=== PATIENT | female | born 1935 | race Caucasian/White ===

== ENCOUNTER 2019-10-12 08:39 | Outpatient (CLI) | payer OTHER, SELFPAY ==
--- NOTE | ~2019-10-12 | CT_ITS ---
EXAMINATION: CT abdomen pelvis wo/w con EXAM DATE: 10/12/2019 10:12 INDICATION: Gross hematuria. TECHNIQUE: Spiral CT of the abdomen and pelvis was performed without contrast. The patient was then injected with small bolus intravenous Omnipaque 350, followed by delay of approximately 10 minutes to allow collecting system to opacify. A post contrast scan abdomen and pelvis was performed during inj ection of remaining contrast. A total of 130 cc intravenous contrast was administered. The dose-alexa th product (DLP) for this examination was 694.51 mGy-cm. The exposure was tailored according to beatrice ent size (auto mA exposure control), and iterative reconstruction (ASIR) was used as additional dose reduction technique. There is no prior study for comparison. FINDINGS: There are left renal peripelvic cysts. There is no hydronephrosis or nephrolithiasis. The kidneys enhance symmetrically. There are no suspicious renal lesions. The calyces and opacified por tions of ureters are unremarkable, without filling defects or focal suspicious strictures. The bladd er is unremarkable. The uterus is not identified and has likely been surgically resected. The liver, spleen, adrenal glands and pancreas are unremarkable. Gallbladder is unremarkable. No bi liary obstruction. There is no retroperitoneal or pelvic lymphadenopathy. 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 The appendix is not positively visualized. There is no pericecal inflammatory change to suggest appe ndicitis. The stomach and small bowel are unremarkable. There is moderate sigmoid colonic diverticu losis. There is no adjacent inflammatory change to suggest diverticulitis. No free intraperitoneal gas. There is cardiomegaly. The lung bases are unremarkable. There are no osteoblastic or osteoly tic lesions identified. IMPRESSION: 1. Left renal peripelvic cysts. No suspicious genitourinary findings. 2. Moderate sigmoid diverticulosis. Reviewed, dictated and finalized at location A.
[2019-10-12 09:38] LABS: Estimated Glomerular Filt Rate > 60
== END 2019-10-12 08:40 | disposition home or self-care (01) ==
LOC: ANHIMG 08:49
PROVIDERS: Visit Provider Urology
DX: R31.0 Gross hematuria (principal); N28.1 Cyst of kidney, acquired; K57.90 Diverticulosis of intestine, part unspecified, without perforation or abscess without bleeding
CPT/HCPCS: 36415; 74178; Q9967

== ENCOUNTER 2020-01-06 12:52 | Outpatient (CLI) | payer OTHER, SELFPAY ==
--- NOTE | ~2020-01-06 | MMUS_ITS ---
EXAMINATION: MM diagnostic tasneem LT w triny, US breast LT complete HISTORY: Follow-up left breast mass TECHNIQUE: Additional 3-D tomosynthesis images of the left breast were performed and synthetic 2-D im ages were generated. CAD analysis was submitted and interpreted. High resolution left breast ultrasou nd was performed. COMPARISON: Comparison to multiple prior studies sequentially, with oldest reviewed study dated 11/2019. BREAST PARENCHYMAL COMPOSITION: Breast composed of scattered areas of fibroglandular density. FINDINGS: MAMMOGRAPHIC FINDINGS: There is a persistent 6-7 mm mass upper outer quadrant of the left breast, middle third. No suspiciou s calcifications or architectural distortion. ULTRASOUND: Left breast ultrasound: At 12-1:00, 8 cm from the nipple there is an oval circumscribed hypoechoic ma ss measuring 7 x 6 x 4 mm without internal vascularity. There is enhanced through transmission. IMPRESSION: 1. Probable benign appearing 7 mm left breast mass at 12-1:00, 8 cm from the nipple. 2. Recommend 6 month follow-up diagnostic left mammogram and ultrasound BI-RADS category 3, probably benign findings. Reviewed, dictated and finalized at location A. IMPRESSION: 1. Probable benign appearing 7 mm left breast mass at 12-1:00, 8 cm from the ni pple. 2. Recommend 6 month follow-up diagnostic left mammogram and ultrasound BI-RADS category 3, probably benign findings.
== END 2020-01-06 12:53 | disposition home or self-care (01) ==
LOC: ANHIMG 12:55
PROVIDERS: PCP Obstetrics & Gynecology; Visit Provider Obstetrics & Gynecology
DX: N63.0 Unspecified lump in unspecified breast (principal); R92.8 Other abnormal and inconclusive findings on diagnostic imaging of breast
CPT/HCPCS: 76641; 77061; 77065; G0279

== ENCOUNTER 2021-02-25 09:25 | Outpatient (CLI) | payer OTHER, SELFPAY ==
--- NOTE | ~2021-02-25 | CT_ITS ---
EXAMINATION: CT abdomen pelvis wo/w con DATE: 02/25/2021 10:36 INDICATION: Gross hematuria TECHNIQUE: Computed tomography (CT) of the abdomen and pelvis was performed without intravenous contr ast. CT of the abdomen and pelvis was then performed with a total of 130 mL Omnipaque 350 intravenous contrast using a double-bolus technique for simultaneous opacification of the renal parenchyma and r enal collecting system. The dose-length product (DLP) was 647.94 mGy-cm. Automated exposure control a nd iterative reconstruction technique were employed. COMPARISON: 10/12/2019 FINDINGS: Minimal dependent atelectasis is present in the lung bases. Cardiomegaly is noted. The live r surface is nodular, consistent with cirrhosis. The spleen, pancreas, and adrenal glands are normal. There is mild distention of the gallbladder without surrounding inflammatory change. No stones are i dentified in the kidneys, ureters, or bladder. There is no hydronephrosis or hydroureter. There are p eripelvic cysts of the left kidney. No suspicious renal or urothelial lesion is identified. There is no free intraperitoneal gas or evidence of bowel obstruction. There is calcified atherosclerosis of t he aorta and many of the other arteries. No pathologically enlarged abdominal or pelvic lymph nodes a re identified. Colonic diverticulosis is present without evidence of diverticulitis. There is severe lumbar spondylosis. There is moderate osteoarthritis of the hips. There are healing fractures at the anterolateral aspects of the right eighth and ninth ribs. IMPRESSION: 1. No CT correlate for the patient's symptoms. 2. Mild gallbladder distention which could be due to fasting state. Recommend correlation for right u pper quadrant tenderness. 3. Healing right rib fractures. Reviewed, dictated and finalized at location A. IMPRESSION: 1. No CT correlate for the patient's symptoms. 2. Mild gallbladder distention which could be due to fasting state. Recommend c orrelation for right upper quadrant tenderness. 3. Healing right rib fractures.
[2021-02-25 10:15] LABS: Estimated Glomerular Filt Rate > 60
== END 2021-02-25 09:26 | disposition home or self-care (01) ==
LOC: ANHIMG 09:36
PROVIDERS: Visit Provider Nurse Practitioner Adult Health
DX: R31.0 Gross hematuria (principal)
CPT/HCPCS: 74178; Q9967

== ENCOUNTER 2021-03-14 14:04 | Outpatient (CLI) | payer OTHER, SELFPAY ==
--- NOTE | ~2021-03-14 | DEXA_ITS ---
Bone Density Report Name: Veda Figueroa Age: 85 Sex: Female Ethnicity: White Date of : 1935 Indication: postmenopausal; cancer; hysterectomy; Referring Provider: Jorge Alberto, Janak Jones Study: Bone densitometry was performed. Exam Date: March 14, 2021 Accession number: [id number] Bone Density: Region BMD T-score Z-score Classification AP Spine (L1, L2) 1.053 0.7 3.4 Normal Femoral Neck (Left) 0.774 -0.7 1.9 Normal Total Hip (Left) 0.843 -0.8 1.5 Normal Total Hip Bilateral Avg 0.857 -0.7 1.6 Normal Femoral Neck (Right) 0.895 0.4 2.9 Normal Total Hip (Right) 0.869 -0.6 1.7 Normal World Health Organization criteria for BMD impression classify patients as: Normal (T-score at or above -1.0), Osteopenia (T-score between -1.0 and -2.5), or Osteoporosis (T-score at or below -2.5). 10-year Fracture Risk: FRAX not reported because: All T-scores for Spine Total, Hip Total, Femoral Neck at or above -1.0 Clinical Information Provided by Patient: Has used the following medications: Vitamin D Has the following medical conditions: Cancer, Hysterectomy Menopause Age: 49 No regular weight bearing exercise Drinks caffeinated beverages Onset of menses at age 13 Number of children 4 Impression: The patient has normal bone mass. Discussion: BONE DENSITY IS ABOVE THE MINIMUM DESIRABLE LEVEL AT ALL SKELETAL SITES TESTED. This patient?s bone mineral density is above the minimum desirable level (T-score -1.0 or better) at all sites measured. The patient should follow a healthful lifestyle (good nutrition with adequate calcium and vitamin D, and appropriate weight-bearing exercise). Follow-Up: Consider repeating this study in 5 years or sooner if there is some new clinical indication. Reported by: LIS on 03/14/2021 2:43:00 PM. Reviewed, dictated and finalized at location AClint KIM
--- NOTE | ~2021-03-14 | MM_ITS ---
EXAMINATION: MM diagnostic tasneem LT w triny HISTORY: Personal history of breast cancer TECHNIQUE: Additional 3-D tomosynthesis images of the left breast were performed and synthetic 2-D im ages were generated. CAD analysis was submitted and interpreted. COMPARISON: Comparison to multiple prior studies sequentially, with oldest reviewed study dated 06/28. BREAST PARENCHYMAL COMPOSITION: Breast composed of scattered areas of fibroglandular density. FINDINGS: There are no suspicious masses, calcifications or architectural distortion in the left shine st to suggest malignancy. IMPRESSION: 1. No mammographic evidence for malignancy in the left breast. 2. Routine yearly screening mammogram and regular clinical breast examination are recommended. BI-RADS Category 1: Negative Reviewed, dictated and finalized at location A. IMPRESSION: 1. No mammographic evidence for malignancy in the left breast. 2. Routine yearly screening mammogram and regular clinical breast examination a re recommended. BI-RADS Category 1: Negative
== END 2021-03-14 14:05 | disposition home or self-care (01) ==
PROVIDERS: Visit Provider Obstetrics & Gynecology
DX: Z12.31 Encounter for screening mammogram for malignant neoplasm of breast (principal); N60.82 Other benign mammary dysplasias of left breast; Z78.0 Asymptomatic menopausal state
CPT/HCPCS: 77061; 77065; 77080; G0279

== ENCOUNTER 2021-05-24 13:11 | Emergency (ER) | payer OTHER, SELFPAY ==
[2021-05-24 13:53] VITALS: BP 170/61; PULSE 57; RESP 16; TEMP 36.9; O2SAT 97
--- NOTE | 2021-05-24 14:14 | ED.SKABFB ---
HPI - Skin/Abscess/Foreign Bdy General Chief complaint: Skin/Abscess/Foreign Body Stated complaint: rash Time Seen by Provider: 05/24/21 14:02 Source: patient and RN notes reviewed Mode of arrival: ambulatory Limitations: no limitations History of Present Illness HPI narrative: Patient presents today complaining of a rash and itching to the right lateral chest since last night. Patient states she is having an allergic reaction to triple antibiotic ointment and Band-Aid. She tried to pick off a very large mole and dressed it after picking it off. MD complaint: rash Related Data Home Medications Medication Instructions Recorded Confirmed amlodipine 5 mg PO DAILY 05/24/21 05/24/21 apixaban [Eliquis] 5 mg PO DAILY 05/24/21 05/24/21 atenolol 25 mg PO DAILY 05/24/21 05/24/21 levothyroxine 100 mcg PO DAILY 05/24/21 05/24/21 tramadol 50 mg PO DAILY 05/24/21 05/24/21 Allergies Allergy/AdvReac Type Severity Reaction Status Date / Time Sulfa (Sulfonamide Allergy Unknown Unknown Verified 05/24/21 14:12 Antibiotics) Review of Systems Review of Systems: CONSTITUTIONAL: Denies body aches, fever, chills, or sweats. EYES: Denies visual changes, redness, or discharge. ENT: Denies rhinorrhea, congestion, sore throat, or otalgia. CARDIOVASCULAR: Denies chest pain, palpitations, or edema. RESPIRATORY: Denies cough or dyspnea. GASTROINTESTINAL: Denies abdominal pain, nausea, vomiting, or diarrhea. GENITOURINARY: Denies dysuria or hematuria. SKIN: Denies wounds. + Pruritic rash MUSCULOSKELETAL: Denies back pain, joint pain, or myalgia. NEUROLOGIC: Denies headache, numbness, tingling, or weakness. PSYCH: Denies depression or anxiety. [facility] Past Medical History Medical History (Updated 05/24/21 @ 14:20 by Archana Rosario, TREVOR, WALTER) Hypertension Hypothyroidism Family History Family History Other Diabetes mellitus Social History Social History Smoking status: Former smoker Smoking end date: 06/01/84 Alcohol intake: current Comments At time of signature, I have reviewed and agree with nursing past medical, surgical, social and family history unless otherwise noted. Please see nursing chart for further information. There is no relevant family history pertinent to the presenting complaint Exam Narrative: GENERAL: Well-appearing, well-nourished, and in no acute distress. HEAD: Normocephalic, atraumatic. EYES: EOMI. No redness or drainage. Conjunctivae normal. ENT: Mucous membranes pink and moist. NECK: Normal AROM. CHEST: No respiratory distress. EXTREMITIES: Normal range of motion. No edema. SKIN: Warm, dry. Capillary refill normal. Normal skin turgor. 14x 12 cm area of erythematous honey crusted papular rash to the right lateral chest. NEURO: No focal deficits. Alert and oriented x3. Gait steady. PSYCH: Normal affect. No signs of depression or anxiety. Course Vital Signs Vital signs: Vital Signs Temperature 98.5 F 05/24/21 13:53 Pulse Rate 57 L 05/24/21 13:53 Respiratory Rate 16 05/24/21 13:53 Blood Pressure 170/61 H 05/24/21 13:53 Pulse Oximetry 97 05/24/21 13:53 Temperature 98.5 F 05/24/21 13:53 Pulse Rate 57 L 05/24/21 13:53 Respiratory Rate 16 05/24/21 13:53 Blood Pressure 170/61 H 05/24/21 13:53 Pulse Oximetry 97 05/24/21 13:53 Reviewed. Pt has been instructed to follow up with her PCP regarding her elevated blood pressure today. MDM - Skin/Abscess/Foreign Bdy Differential Diagnosis Differential diagnosis: Likely dermatophytosis, cellulitis, eczema, impetigo and contact dermatitis Critical Care Time Critical Care Time Critical Care Time: No Discharge Plan Discharge Clinical Impression: Impetigo Patient Disposition: Home, Self-Care Condition: Stable Instructions: Impetigo (DC) Additional Instructions: Please u
== END 2021-05-24 14:30 | disposition home or self-care (01) ==
PROVIDERS: Emergency Provider Nurse Practitioner
DX: L01.00 Impetigo, unspecified (principal); Z87.891 Personal history of nicotine dependence; I10 Essential (primary) hypertension; E03.9 Hypothyroidism, unspecified
CPT/HCPCS: 99213; G0463

== ENCOUNTER 2021-08-10 15:14 | Emergency (ER) | payer OTHER, SELFPAY ==
[2021-08-10 15:28] VITALS: BP 180/77; PULSE 67; RESP 16; TEMP 37.1; O2SAT 100
--- NOTE | 2021-08-10 16:23 | ED.SKABFB ---
HPI - Skin/Abscess/Foreign Bdy General Chief complaint: Skin/Abscess/Foreign Body Stated complaint: rash Time Seen by Provider: 08/10/21 16:11 Source: patient and RN notes reviewed Mode of arrival: ambulatory Limitations: no limitations History of Present Illness HPI narrative: Patient presents today complaining of a rash to her right abdomen x2 days. Previously she had a sore to her right abdomen and had picked a scab and applied a Band-Aid. Subsequently she had applied more Band-Aids in the following days and believes she had broken out due to the Band-Aid adhesive. Once that she had remove the Band-Aids and had this rash due to the adhesive the redness from this rash had spread over her abdomen. She had been using Neosporin, then Polysporin ointment without relief. MD complaint: rash Related Data Home Medications Medication Instructions Recorded Confirmed amlodipine 5 mg PO DAILY 05/24/21 05/24/21 apixaban [Eliquis] 5 mg PO DAILY 05/24/21 05/24/21 atenolol 25 mg PO DAILY 05/24/21 05/24/21 levothyroxine 100 mcg PO DAILY 05/24/21 05/24/21 tramadol 50 mg PO DAILY 05/24/21 05/24/21 Allergies Allergy/AdvReac Type Severity Reaction Status Date / Time Sulfa (Sulfonamide Allergy Unknown Unknown Verified 05/24/21 14:12 Antibiotics) Review of Systems Review of Systems: CONSTITUTIONAL: Denies body aches, fever, chills, or sweats. EYES: Denies visual changes, redness, or discharge. ENT: Denies rhinorrhea, congestion, sore throat, or otalgia. CARDIOVASCULAR: Denies chest pain, palpitations, or edema. RESPIRATORY: Denies cough or dyspnea. GASTROINTESTINAL: Denies abdominal pain, nausea, vomiting, or diarrhea. GENITOURINARY: Denies dysuria or hematuria. SKIN: Denies itching, or wounds.+ Rash MUSCULOSKELETAL: Denies back pain, joint pain, or myalgia. NEUROLOGIC: Denies headache, numbness, tingling, or weakness. PSYCH: Denies depression or anxiety. PMFSH Past Medical History Medical History Hypertension Hypothyroidism Family History Family History Other Diabetes mellitus Social History Social History Smoking status: Former smoker Smoking end date: 06/01/84 Alcohol intake: current Comments At time of signature, I have reviewed and agree with nursing past medical, surgical, social and family history unless otherwise noted. Please see nursing chart for further information. There is no relevant family history pertinent to the presenting complaint Exam Narrative: GENERAL: Well-appearing, well-nourished, and in no acute distress. HEAD: Normocephalic, atraumatic. EYES: EOMI. No redness or drainage. Conjunctivae normal. ENT: Mucous membranes pink and moist. NECK: Normal AROM. CHEST: No respiratory distress. EXTREMITIES: Normal range of motion. No edema. SKIN: Warm, dry. Capillary refill normal. Normal skin turgor. Entire right abdomen with erythematous papular rash, lateral portion has coalesced into areas that were covered by Band-Aid. Small portions are indurated with superficial yellow honey crusting. NEURO: No focal deficits. Alert and oriented x3. Gait steady. PSYCH: Normal affect. No signs of depression or anxiety. Course Course Level of Care: Express Care Visit Vital Signs Vital signs: Vital Signs Temperature 98.7 F 08/10/21 15:28 Pulse Rate 67 08/10/21 15:28 Respiratory Rate 16 08/10/21 15:28 Blood Pressure 180/77 H 08/10/21 15:28 Pulse Oximetry 100 08/10/21 15:28 Temperature 98.7 F 08/10/21 15:28 Pulse Rate 67 08/10/21 15:28 Respiratory Rate 16 08/10/21 15:28 Blood Pressure 180/77 H 08/10/21 15:28 Pulse Oximetry 100 08/10/21 15:28 Reviewed. Pt has been instructed to follow up with her PCP regarding her elevated blood pressure today. MDM - Skin/Abscess/Foreign Bdy
== END 2021-08-10 16:31 | disposition home or self-care (01) ==
PROVIDERS: Emergency Provider Nurse Practitioner
DX: L25.9 Unspecified contact dermatitis, unspecified cause (principal); L03.311 Cellulitis of abdominal wall; Z87.891 Personal history of nicotine dependence; I10 Essential (primary) hypertension; E03.9 Hypothyroidism, unspecified
CPT/HCPCS: 99213; G0463

== ENCOUNTER 2022-03-27 15:22 | Outpatient (CLI) | payer OTHER, SELFPAY ==
--- NOTE | ~2022-03-27 | MM_ITS ---
EXAMINATION: MM screening tasneem LT w triny HISTORY: Screening left mammogram, history of right mastectomy TECHNIQUE: Craniocaudal and mediolateral oblique 3-D tomosynthesis images were obtained and synthetic 2-D images were generated. CAD analysis was submitted and interpreted. COMPARISON: 03/14/2021, 01/06/2020, 01/11/2019 BREAST PARENCHYMAL COMPOSITION: There are scattered areas of fibroglandular density. FINDINGS: No suspicious mass, calcification, or architectural distortion are identified to suggest ma lignancy. There has been no suspicious interval change.. IMPRESSION: 1. No mammographic evidence of malignancy. 2. Recommend routine screening mammography while the patient remains in good health. BI-RADS Category 1: Negative Reviewed, dictated and finalized at location A. IMPRESSION: 1. No mammographic evidence of malignancy. 2. Recommend routine screening mammography while the patient remains in good he alth. BI-RADS Category 1: Negative
== END 2022-03-27 15:23 | disposition home or self-care (01) ==
PROVIDERS: Visit Provider Obstetrics & Gynecology
DX: Z12.31 Encounter for screening mammogram for malignant neoplasm of breast (principal)
CPT/HCPCS: 77063; 77067

== ENCOUNTER → 2023-01-09 13:03 | Outpatient (CLI) | payer OTHER, SELFPAY ==
--- NOTE | ~2023-01-09 | XR_ITS ---
EXAM: XR foot RT min 3V DATE: 01/09/2023 14:08 HISTORY: Pain in right foot . COMPARISON: None available. FINDINGS: Decreased mineralization. No fracture or dislocation. No lytic or blastic lesion. Mild adams lux valgus. Mild degenerative change at the first MTP joint, multiple interphalangeal joints, and mul tiple midfoot joints. Achilles and plantar enthesopathy. No erosion or periosteal change. Vascular ca lcifications. IMPRESSION: Osteopenia. 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 Reviewed, dictated and finalized at location K.
== END ==
PROVIDERS: PCP Internal Medicine; Visit Provider Internal Medicine
DX: M85.871 Other specified disorders of bone density and structure, right ankle and foot (principal); M19.071 Primary osteoarthritis, right ankle and foot
CPT/HCPCS: 73630

== ENCOUNTER 2023-02-04 09:02 | Emergency (ER) | payer OTHER, SELFPAY ==
[2023-02-04] VITALS (26 sets, daily range): BP systolic 132–191; BP diastolic 67–90; PULSE 59–77; RESP 16–25; O2SAT 94–100
--- NOTE | ~2023-02-04 | XR_ITS ---
EXAMINATION: XR ribs RT 2V w CXR 2V DATE: 02/04/2023 10:39 INDICATION: Right chest pain. Fall. TECHNIQUE: Frontal and lateral views of the chest and 2 views on 3 radiographs of the right ribs were obtained. COMPARISON: Chest radiographs 05/18/16 FINDINGS: CHEST TWO VIEWS: There is a diffuse interstitial pattern, consistent mild pulmonary edema. No pleural effusion or pneumothorax. Cardiomegaly is noted. Surgical clips overlie right chest wall. There is m ild chronic anterior wedging of multiple vertebral bodies. RIGHT RIBS: There are fractures of right 8th-11th ribs. IMPRESSION: 1. Acute fractures of right 8th-11th ribs. 2. Mild pulmonary edema. 3. Cardiomegaly. Reviewed, dictated and finalized at location A.
--- NOTE | ~2023-02-04 | CT_ITS ---
EXAMINATION: CT cervical spine wo con DATE: 02/04/2023 12:36 INDICATION: Neck injury. Fall. TECHNIQUE: Computed tomography (CT) of the cervical spine was performed without intravenous contrast. Automated exposure control and iterative reconstruction technique were employed. The dose-length pro duct was 168.22 mGy-cm. COMPARISON: None FINDINGS: There is a 5 mm nodule in left lung upper lobe, likely benign. There is a left otomastoid e ffusion. There is 3 degrees levocurvature of cervical spine. There is 2 mm retrolisthesis of C5 on C6 . Vertebral body heights are normal. There is mildly decreased disc height at C3-C4 and severely decr eased disc height from C4-C5 through C6-C7. The following disc levels are specifically discussed: C2-C3: There is mild bilateral uncovertebral joint osteoarthritis. There is severe bilateral facet domenica int osteoarthritis. There is mild bilateral neural foraminal stenosis. There is no central canal sten osis. C3-C4: There is mild bilateral uncovertebral joint osteoarthritis. There is severe bilateral facet domenica int osteoarthritis. There is mild bilateral neural foraminal stenosis. There is mild central canal st enosis. C4-C5: There is severe bilateral uncovertebral joint osteoarthritis. There is severe bilateral facet joint osteoarthritis. There is mild right and moderate left neural foraminal stenosis. There is mild central canal stenosis. C5-C6: There is severe bilateral uncovertebral joint osteoarthritis. There is mild right and severe l eft facet joint osteoarthritis. There is mild bilateral neural foraminal stenosis. There is mild cent ral canal stenosis. C6-C7: There is severe bilateral uncovertebral joint osteoarthritis. There is severe bilateral facet joint osteoarthritis. There is mild bilateral neural foraminal stenosis. There is mild central canal stenosis. C7-T1: There is no uncovertebral joint osteoarthritis. There is severe bilateral facet joint osteoart hritis. There is moderate right and mild left neural foraminal stenosis. There is no central canal st enosis. IMPRESSION: 1. No fracture. 2. Severe cervical spondylosis. Reviewed, dictated and finalized at location A.
--- NOTE | ~2023-02-04 | XR_ITS ---
EXAMINATION: XR knee RT min 4V DATE: 02/04/2023 12:57 INDICATION: Right knee pain. Fall. TECHNIQUE: 4 views of right knee were obtained. COMPARISON: None. FINDINGS: Bone alignment is normal. No fracture. There is mild tricompartmental osteoarthritis. No kn ee joint effusion. IMPRESSION: 1. Mild right knee osteoarthritis. Reviewed, dictated and finalized at location A.
--- NOTE | ~2023-02-04 | CT_ITS ---
EXAMINATION: CT brain wo con DATE: 02/04/2023 12:36 INDICATION: Head injury. Fall. TECHNIQUE: Computed tomography (CT) of the head was performed without intravenous contrast. The mA wa s adjusted according to patient size. Iterative reconstruction technique was employed. The dose-lengt h product was 756.67 mGy-cm. 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 There are scattered areas of low attenuati on in the cerebral white matter. There is no intracranial hemorrhage, acute infarction, or abnormal i ntracranial mass lesion. The ventricles are normal in size. There are likely changes of ocular lens r eplacement surgeries. There is mild mucosal thickening in left maxillary sinus. There is a left masto id effusion. There is a 10 mm subcutaneous cyst in right cheek, likely a sebaceous cyst. IMPRESSION: 1. Small old infarct in left cerebellum. 2. Moderate nonspecific cerebral white matter disease, which likely represents chronic small vessel i schemic disease. Reviewed, dictated and finalized at location A. IMPRESSION: 1. Small old infarct in left cerebellum. 2. Moderate nonspecific cerebral white matter disease, which likely represents chronic small vessel ischemic disease.
--- NOTE | ~2023-02-04 | CT_ITS ---
EXAMINATION: CT chest abdomen pelvis w con DATE: 02/04/2023 12:37 INDICATION: Fall. Chest and abdominal injury. TECHNIQUE: Computed tomography (CT) of the chest, abdomen, and pelvis was performed with 100 mL Omnip aque 350 intravenous contrast. Automated exposure control and iterative reconstruction technique were employed. The dose-length product was 494.48 mGy-cm. COMPARISON: CT abdomen and pelvis 02/25/2021 FINDINGS: CHEST CT: The lungs demonstrate mild atelectasis. There is smooth septal thickening bilaterally, consistent mil d pulmonary edema. There are small pleural effusions. Cardiomegaly is noted. There are coronary arter y calcifications. Aortic atherosclerosis is noted. There is severe thoracic spondylosis. There is mil d chronic anterior wedging of multiple vertebral bodies. There are acute fractures of right eighth-12 th ribs. ABDOMEN/PELVIS CT: There is a 7 mm cyst in the liver. There is liver surface nodularity suspicious for cirrhosis. The ga llbladder, spleen, pancreas, adrenal glands, and right kidney are normal. There is a peripelvic cysts in the left kidney measuring up to 2.9 cm. There is calcified atherosclerosis of the aorta and many of the other arteries. There is diverticulosis of the colon without evidence of diverticulitis. There are no dilated loops of bowel. The appendix is not visualized. There is calcified atherosclerosis of the aorta and many of the other arteries. There are no pathologically enlarged lymph nodes. There is no free intraperitoneal fluid. There is severe osteoarthritis of the hips. There is severe lumbar sp ondylosis. There is mild chronic anterior wedging of L1 vertebral body. IMPRESSION: 1. Acute fractures of right eighth-12th ribs. 2. Mild pulmonary edema. 3. Small pleural effusions. 4. Liver surface nodularity suspicious for cirrhosis. Reviewed, dictated and finalized at location A.
--- NOTE | 2023-02-04 10:52 | ECG_ITS ---
Measurements Intervals [place] Rate: 57 P: GA: 0 QRS: 64 QRSD: 92 T: 45 QT: 451 QTc: 442 Interpretive Statements ATRIAL FIBRILLATION WITH SLOW VENTRICULAR RESPONSE BORDERLINE ST ABNORMALITY- ANTEROLAT/INF LEADS BASELINE ARTIFACT- I, II, AVR, AVL, V6 ABNORMAL ECG NO PREVIOUS ECG AVAILABLE FOR COMPARISON Electronically Signed On 02-04-2023 11:20:54 CDT by Chun Gambino D.O.
--- NOTE | 2023-02-04 11:09 | ED.FALL ---
HPI - Fall General Chief Complaint: Fall <Akosua Che PA-C - Last Filed: 02/04/23 13:42> Stated Complaint: fall/rib pain <Akosua Che PA-C - Last Filed: 02/04/23 13:42> Time Seen by Provider: 02/04/23 10:26 <Akosua Che PA-C - Last Filed: 02/04/23 13:42> History of Present Illness HPI Narrative: 87-year-old female reports for evaluation after a fall that occurred yesterday. Patient states she was walking to her front door, had a dizzy spell , fell through the doorway and onto the concrete. She reports landing on her right side. States she laid on the ground for approximately 10 minutes until her neighbor saw her and helped her back inside. She is reporting pain to her right ribs that is worse with inspiration and right knee. She denies hitting her head or losing consciousness. She reports neck pain and low back pain which is unchanged from her baseline, otherwise no other pain or acute injury. The patient does report with a bruise to her right frontal scalp and abrasions to her bilateral knees and left lateral ankle. Last tetanus unknown. She denies chest pain, dyspnea or palpitations prior to fall. Denies vision changes, focal numbness or weakness, upper extremity or lower extremity pain, hip pain, new onset back pain and neck pain. Patient states she has frequent dizzy spells which she believes is secondary to her medications. She denies a sensation of lightheadedness or vertigo upon questioning. She is anticoagulated with Eliquis. <Akosua Che PA-C - Last Filed: 02/04/23 13:42> Related Data Home Medications: Home Medications Medication Instructions Recorded Confirmed amlodipine 5 mg tablet 5 mg PO DAILY 05/24/21 05/24/21 apixaban 5 mg tablet (Eliquis) 5 mg PO DAILY 05/24/21 05/24/21 atenolol 25 mg tablet 25 mg PO DAILY 05/24/21 05/24/21 levothyroxine 100 mcg tablet 100 mcg PO DAILY 05/24/21 05/24/21 tramadol 50 mg tablet 50 mg PO DAILY 05/24/21 05/24/21 <Akosua Che PA-C - Last Filed: 02/04/23 13:42> Allergies/Adverse Reactions: Allergies Allergy/AdvReac Type Severity Reaction Status Date / Time Sulfa (Sulfonamide Allergy Unknown Unknown Verified 02/04/23 11:58 Antibiotics) pseudoephedrine Allergy Rash Verified 02/04/23 11:58 <Akosua Che PA-C - Last Filed: 02/04/23 13:42> Review of Systems Review of Systems: CONSTITUTIONAL: Denies fever, chills EYES: Denies visual changes, redness, or discharge. ENT: Denies rhinorrhea, congestion, sore throat, or otalgia. CARDIOVASCULAR: See HPI RESPIRATORY: See HPI GASTROINTESTINAL: Denies abdominal pain, nausea, vomiting, or diarrhea. GENITOURINARY: Denies dysuria or hematuria. SKIN: Denies rash or itching. MUSCULOSKELETAL: See HPI NEUROLOGIC: Denies headache, numbness, dizziness, or weakness. PSYCHIATRIC: Denies anxiety or depression. <Akosua Che PA-C - Last Filed: 02/04/23 13:42> [facility] Past Medical History Medical History: Medical History Hypertension Hypothyroidism <Akosua Che PA-C - Last Filed: 02/04/23 13:42> Family History Family History: Family History Other Diabetes mellitus <Akosua Che PA-C - Last Filed: 02/04/23 13:42> Social History Social History: Social History Smoking status: Former smoker Smoking end date: 06/01/84 Alcohol intake: current <Akosua Che PA-C - Last Filed: 02/04/23 13:42> Exam Narrative: GENERAL: Well-appearing, in no acute distress. Patient resting comfortably in exam bed. She is pleasant and conversational. HEAD: No lacerations or abrasions to scalp. There is a 2 cm area of ecchymosis above the right eyebrow. EYES: PERRLA, EOMI ENT: Nares clear. Mucous membranes dry. Oropharynx without tonsillar hypertrophy
[2023-02-04] MEDS: TETANUS,DIPHTHERIA,AC PERTUSSIS ADULT (0.5 ML) BOOSTRIX IM (11:32)
[2023-02-04 11:36] LABS: Basophils Absolute Auto 0.1 K/mm3 (0.0-0.1); Basophils Percent Auto 0.7 % (0.2-1.2); Eosinophils Absolute Auto 0.1 K/mm3 (0-0.3); Eosinophils Percent Auto 1.2 % (0-4.4); Hematocrit 39.6 % (37.0-47.0); Hemoglobin 12.7 g/dL (12.0-15.0); Immature Granulocyte Absolute 0.03 K/mm3 (0.00-0.031); Immature Granulocyte Percent A 0.4 % (0-0.5); Lymphocytes Absolute Auto 1.17 K/mm3 (0.9-3.2); Mean Corpuscular HGB Conc 32.1 g/dl (32-36); Mean Corpuscular Hemoglobin 31.8 pg (26-34); Mean Corpuscular Volume 99.2 fl (80-100); Mean Platelet Volume 10.8 fl (7.4-10.4); Monocytes Absolute Auto 0.5 K/mm3 (0.1-0.6); Monocytes Percent Auto 7.7 % (2.6-8.5); Platelet Count Result 172 k/mm3 (150-375); Red Blood Count 3.99 M/mm3 (4.2-5.4); Red Cell Distribution Width 13.7 % (11.5-14.5); White Blood Count 6.9 K/mm3 (4.5-10.0)
[2023-02-04] MEDS: MORPHINE SULFATE (*CRX) 2 MG/ML INJ IV PUSH ×2 (11:46→14:11)
[2023-02-04 11:48] LABS: Alanine Aminotransferase 23 U/L (6-35); Albumin Level 4.7 g/dL (3.5-5.1); Alkaline Phosphatase 65 U/L (38-126); Anion Gap 9 mmol/L (8-16); Aspartate Amino Transferase 39 U/L (14-36); Bilirubin,Total 1.2 mg/dL (0.2-1.3); Blood Urea Nitrogen 10 mg/dL (7-17); Calcium 9.6 mg/dL (8.4-10.2); Carbon Dioxide 29 mmol/L (22-30); Chloride 99 mmol/L (98-107); Estimated CRCL calculation 54 ml/min; Estimated Glomerular Filt Rate > 60; Glucose 105 mg/dL (65-110); Potassium 4.2 mmol/L (3.4-5.0); Sodium 137 mmol/L (137-145)
[2023-02-04 11:57] LABS: NT Pro B Type Natriuretic Pept 1500 pg/mL (19.9-100)
[2023-02-04 12:00] LABS: Troponin I < 0.012 ng/mL (0.000-0.034)
[2023-02-04] MEDS: SODIUM CHLORIDE 0.9% IV 1,000 ML 500 ML IV CONT (12:04)
--- NOTE | 2023-02-04 12:09 | PC.NURSE ---
pt states they are unable to urinate at this time. pt taken off floor for CT @[id number]
[2023-02-04 13:06] LABS: Appearance Urine Clear (Clear); Bilirubin Urine Negative (Negative); Blood Urine Negative (Negative); Color Urine Yellow (Yellow); Glucose Urine UA Negative (Negative); Ketones Urine Trace mg/dL (Negative); Leukocyte Esterase Ur Negative LEU/UL (Negative); Nitrate Urine Negative (Negative); Protein Urine Negative (Negative); Specific Grav Ur 1.034 (1.001-1.035); Urobilinogen Urine 0.2 mg/dL (<2.0)
[2023-02-04 13:24] LABS: Add Urine Microscopic? NO
== END 2023-02-04 14:15 | disposition short-term general hospital (02) ==
PROVIDERS: Emergency Provider Physician Assistant; PCP Internal Medicine
DX: S22.41XA Multiple fractures of ribs, right side, initial encounter for closed fracture (principal); S00.11XA Contusion of right eyelid and periocular area, initial encounter; S80.211A Abrasion, right knee, initial encounter; I48.91 Unspecified atrial fibrillation; Z23 Encounter for immunization; I10 Essential (primary) hypertension; E03.9 Hypothyroidism, unspecified; Z87.891 Personal history of nicotine dependence; Z79.01 Long term (current) use of anticoagulants; I51.7 Cardiomegaly; J81.1 Chronic pulmonary edema; R94.31 Abnormal electrocardiogram [ECG] [EKG]; R90.82 White matter disease, unspecified; R93.2 Abnormal findings on diagnostic imaging of liver and biliary tract; M47.812 Spondylosis without myelopathy or radiculopathy, cervical region; M17.11 Unilateral primary osteoarthritis, right knee; W18.39XA Other fall on same level, initial encounter
CPT/HCPCS: 36415; 70450; 71046; 71100; 71260; 72125; 73564; 74177; 80053; 81003; 83880; 84484; 85025; 90471; 90715; 93005; 96361; 96374; 96376; 99285; J2270; J7030; Q9967

== ENCOUNTER 2023-07-16 13:35 | Outpatient (CLI) | payer OTHER, SELFPAY ==
--- NOTE | ~2023-07-16 | MM_ITS ---
EXAMINATION: MM screening tasneem LT w triny HISTORY: Screening left mammogram, history of right mastectomy TECHNIQUE: Craniocaudal and mediolateral oblique 3-D tomosynthesis images were obtained and synthetic 2-D images were generated. CAD analysis was submitted and interpreted. COMPARISON: 03/27/2022, 03/14/2021, 01/06/2020, 01/11/2019 BREAST PARENCHYMAL COMPOSITION: There are scattered areas of fibroglandular density. FINDINGS: No suspicious mass, calcification, or architectural distortion are identified to suggest ma lignancy. There has been no suspicious interval change. IMPRESSION: 1. No mammographic evidence of malignancy. 2. Recommend routine screening mammography while the patient remains in good health. BI-RADS Category 1: Negative Reviewed, dictated and finalized at location A. REP IMPRESSION: 1. No mammographic evidence of malignancy. 2. Recommend routine screening mammography while the patient remains in good he alth. BI-RADS Category 1: Negative
== END 2023-07-16 13:36 | disposition home or self-care (01) ==
PROVIDERS: PCP Internal Medicine; Visit Provider Obstetrics & Gynecology
DX: Z12.31 Encounter for screening mammogram for malignant neoplasm of breast (principal)
CPT/HCPCS: 77063; 77067

== ENCOUNTER 2023-08-14 14:39 | Outpatient (CLI) | payer OTHER, SELFPAY ==
--- NOTE | ~2023-08-14 | CT_ITS ---
EXAMINATION: CT diagnostic chest wo con DATE: 08/14/2023 15:21 INDICATION: Multiple lung nodules TECHNIQUE: Computed tomography (CT) of the chest was performed without intravenous contrast. The dose -length product was 78.03 mGy-cm. Automated exposure control and iterative reconstruction technique w ere employed. COMPARISON: CT dated 02/04/2023 FINDINGS: Cardiomegaly. There is atherosclerosis and ectasia of the aorta. There is atherosclerosis o f the coronary arteries. No significant pleural or pericardial effusion. There is a 3 mm fissural nod ule on the right. There is a 4 mm left upper lobe nodule, image 25. There is a 4 mm left upper lobe n odule, image 34. There are additional smaller upper lobe nodules. There is focal linear scarring/atel ectasis of the left upper lobe. There is atelectasis. No endobronchial lesions. No pneumothorax. Ther e are healed right rib fractures. There is mild wedge compression deformities of multiple thoracic ve rtebra with accentuated kyphosis, chronic findings. No thoracic lymphadenopathy. IMPRESSION: 1. Small bilateral pulmonary nodules measuring 4 mm or less, likely benign. Recommend follow-up low d ose CT chest in 12 months. 2: Cardiomegaly. Reviewed, dictated and finalized at location A. IMPRESSION: 1. Small bilateral pulmonary nodules measuring 4 mm or less, likely benign. Rec ommend follow-up low dose CT chest in 12 months. 2: Cardiomegaly.
== END 2023-08-14 14:40 | disposition home or self-care (01) ==
PROVIDERS: PCP Internal Medicine; Visit Provider Internal Medicine
DX: R91.8 Other nonspecific abnormal finding of lung field (principal); I51.7 Cardiomegaly
CPT/HCPCS: 71250

== ENCOUNTER 2024-02-26 12:52 | Outpatient (CLI) | payer OTHER, SELFPAY ==
--- NOTE | ~2024-02-26 | CT_ITS ---
EXAMINATION: CT diagnostic chest wo con DATE: 02/26/2024 13:12 INDICATION: Follow-up pulmonary nodules. TECHNIQUE: Computed tomography (CT) of the chest was performed without intravenous contrast. The dose -length product was 68.46 mGy-cm. Automated exposure control and iterative reconstruction technique w ere employed. COMPARISON: CT dated 08/14/2023 FINDINGS: There is atherosclerosis of the aorta. There is an ascending thoracic aortic aneurysm measu ring 4.3 cm. There is atherosclerosis of the coronary arteries. Cardiomegaly. No significant pleural or pericardial effusion. Upper abdomen is unremarkable. There is dependent atelectasis. Stable small bilateral pulmonary nodules measuring 4 mm or less, likely benign. No endobronchial lesions. No pneum othorax. No focal airspace consolidation. No lymphadenopathy. IMPRESSION: 1. Stable small bilateral pulmonary nodules measuring 4 mm or less, likely benign. Recommend follow-u p low dose CT chest in 12 months. 3: Ascending thoracic aortic aneurysm measuring 4.3 cm. Cardiomegaly. Reviewed, dictated and finalized at location B. IMPRESSION: 1. Stable small bilateral pulmonary nodules measuring 4 mm or less, likely loree gn. Recommend follow-up low dose CT chest in 12 months. 3: Ascending thoracic aortic aneurysm measuring 4.3 cm. Cardiomegaly.
== END 2024-02-26 12:53 | disposition home or self-care (01) ==
LOC: MICIMG 12:53
PROVIDERS: PCP Internal Medicine; Visit Provider Internal Medicine
DX: R91.8 Other nonspecific abnormal finding of lung field (principal); I71.21 Aneurysm of the ascending aorta, without rupture; I51.7 Cardiomegaly
CPT/HCPCS: 71250